=== PATIENT | male | born 2000 | race Caucasian/White ===

== ENCOUNTER 2019-02-07 16:23 | Emergency (ER) | payer BC, SELFPAY ==
[2019-02-07 16:26] VITALS: BP 126/73; PULSE 65; RESP 18; TEMP 36.1; O2SAT 98; BMI 22.1
--- NOTE | 2019-02-07 16:51 | ED.VISSUMM ---
- ER Visit Summary Date of Service: 02/07/19 Chief Complaint: Suicidal ideation History of Present Illness: The patient is a 18 M who presents with suicidal thoughts. Increasing over the past week. Nothing seemed to bring these on, rather everything seems to make his symptoms worse. Per his [employer] counselor, he said that if he could kill himself, he would. He had access to a gun previously but not all at this. He is not doing well in school or take care of himself. He denies any medical complaints. Physical Examination: Afebrile and vital signs unremarkable. Alert and oriented. Flat affect. Depressed mood. Poor eye contact. Heart regular. No respiratory distress. Skin appears normal. Normal strength sensation Test Results: CBC, BMP, tox, alcohol pending. Emergency Department Course and Treatment: Patient had suicide precautions. Will perform medical clearance. I do not anticipate any medical problems. Patient was medically cleared for transfer and admission to a psychiatric facility. Social work evaluated the patient and is arranging transfer and placement. Treatment Plan: As above Disposition: Transfer pending Impression: 1. Suicidal ideation This note was generated with [facility] dictation software. It may contain incorrect words, spelling, and punctuation that were not noted in review of the chart prior to signing ED Disposition - Plan for ED Patient: Referrals: [facility] Doctor,Out of [Primary Care Provider] -
[2019-02-07 17:09] LABS: Absolute Lymphocyte Count 2.13 X10^3/uL (0.83-4.51); Absolute Neutrophil Count 4.1 X10^3/uL (2.0-7.7); Basophil# 0.04 X10^3/uL; Basophil% 0.6 % (0-1); Eosinophil# 0.06 X10^3/uL; Eosinophils% 0.9 % (0-5); Hematocrit 47.4 % (40-54); Hemoglobin 16.2 g/dL (13.0-16.5); Lymphocyte # 2.13 X10^3/ul (4.0); Lymphocyte % 31.8 % (19-41); Mean Corp Hgb Conc 34.2 g/dL (32-36); Mean Corpuscular Hgb 30.2 pg (27.0-32.0); Mean Corpuscular Volume 88.3 fL (80-94); Mean Platelet Vol. 9.1 fl (6.2-12.0); Monocyte# 0.39 X10^3/uL; Monocyte% 5.8 % (0-10); NRBC Flagged by Analyzer 0 % (0-5); Neutrophil # 4.05 X10^3/uL (2.7-7.7); Neutrophil % 60.5 % (47-70); Platelet Count 208 K/mm3 (150-450); RBC Distribution Width CV 11.4 % (11.6-14.6); RBC Distribution Width SD 36.7 fl (35.1-43.9); Red Blood Count 5.37 M/mm3 (4.6-6.2); White Blood Count 6.7 K/mm3 (4.4-11.0)
[2019-02-07 17:23] LABS: Anion Gap 7 (5-15); BUN 13 mg/dL (7-18); BUN/Creat Ratio 14.3 RATIO (10-20); Calcium,Total 9.6 mg/dL (8.5-10.1); Chloride 106 mmol/L (98-107); Creatinine, Serum 0.91 mg/dL (0.70-1.30); EST Glomerular Filtration Rate 114 mL/min (>60); Est Glom Filt Rate - Afr Amer 138 mL/min (>60); Estimated Creatinine Clearance 148.85 ml/min; Glucose 88 mg/dL (74-106); Potassium 3.9 mmol/L (3.5-5.1); Sodium Level 140 mmol/L (136-145)
[2019-02-07 17:43] LABS: Alcohol, Blood (Medical)-Serum < 3.0 mg/dL
--- NOTE | 2019-02-07 17:44 | CM.ED ---
Addendum entered by Tricia Gallego 02/07/19 18:01: Parent phone numbers: Any Warner: [phone]; Jyotsna Warner: [phone] Original Note: Social Work Consult: Suicidal Informant: Dr. Brown Chief Complaint: I don't know. When asked if patient is having suicidal thoughts, I don't know. When asked if patient would kill self, Yes definitely. Marital/Social History: Unknown I don't know. Support/Resources: Sees Guerda a Counselor at the [facility]. Education: Sophomore in [employer] [place], undeclared major. Good grade last semester, declining grades this semester per Guerda. Mental Health Treatment/History: No mental health diagnosis. Patient stating to be anxious currently. Denies history of psychiatric treatment or counseling other then school counselor at [facility]. Abuse Issues: Denies Substance Abuse: Denies Mental Status Exam: A&Ox3. Appearance/General Behavior: Disheveled Mood/Affect: Anxious Communication Pattern: Responds to questions by yes ma'am or no ma'am. Would not expound on any open ended questions. Would mainly answer by I don't know, maybe. Thought Process: Denies any hallucinations or delusions. Appears to be paranoid/concerned with current situation. Did explain process and why patient is in the emergency room today. Risk to Self/Others: Patient stating intention to complete suicide. No plan. Per patient counselor, Guerda patient had a plan to complete suicide with a gun over spring last semester and main thing that stopped patient was not having any bullets. Patient not willing to expound any further on suicidal thoughts or plans. Assessment: Met with patient in room. Introduced self as well as social science teacher role. Patient is agreeable to speak with this social science teacher. Patient standing in room. Patient stating to feel more comfortable standing. This social science teacher standing with patient. Patient with limited responses to questions. Patient unable/unwilling to provide this social science teacher with any life recent triggers or changes. Patient is agreeable to this social science teacher speaking with patient parents, Jyotsna and Jarocho. Patient agreeable to this social science teacher speaking with Guerda. Per Guerda patient came to counseling appointment unkept and with a body odor today, this is a change for patient. Guerda stating that patient stated if I could kill myself I would. Per patient father, Jarocho patient did come out at the end of last semester and now identifies as transgender. Per patient mother, Jyotsna patient sister has a history of an inpatient psychiatric stay with similar presentation. Jarocho and Jyotsna are divorces. Jarocho stating that patient does not open up to family either and will often stating I don't know to patient family. Jarocho stating to have been hesitant about patient going to collage this semester as I was afraid this would happen. Jarocho stating that patient was in the best mood of his life about a month ago. Jarocho inquiring about brining patient home with Jarocho to [facility] and to complete placement from there, Dr. Brown and this social science teacher recommending for patient to have an inpatient psychiatric stay from the ED to be able to be evaluated by a psychiatric. Any agreeable to this and is currently on his way to the hospital. All questions answered. Collaborating with Dr. Brown, recommending inpatient psychiatric placement. 1:[address] PLAN: Will make referrals when medical clearance is obtained. Joshua JASMINE, RYAN
[2019-02-07 18:31] LABS: Amphetamine Urine VISTA NEGATIVE (<1000 ng/mL); Barbiturate Urine VISTA NEGATIVE (< 200 ng/mL); Benzodiazepine Urine VISTA NEGATIVE (< 200 ng/mL); Cocaine Urine VISTA NEGATIVE (< 300 ng/mL); Ecstacy Urine VISTA NEGATIVE (< 500 ng/mL); Methadone Urine VISTA NEGATIVE (< 300 ng/mL); PCP Urine VISTA NEGATIVE (< 25 ng/mL); THC Urine VISTA NEGATIVE (< 50 ng/mL); Vista UDS pH Range 6
--- NOTE | 2019-02-07 18:51 | CM.ED ---
Social Work Medically cleared per Dr. Brown. Referral faxed to [facility]. [facility] is in-network with patient insurance. Pending approval. Joshua Gallego MSW, RYAN
[2019-02-07 19:24] VITALS: RESP 16
[2019-02-07 20:00] VITALS: BP 119/71; PULSE 68; RESP 16; O2SAT 99
[2019-02-07 21:00] VITALS: RESP 16
--- NOTE | 2019-02-07 21:04 | ED.RN ---
PT CURLED UP IN BED IN POSITION, HEAD COVERED WITH BLANKETS. PT REMOVES BLANKETS TO ANSWER QUESTIONS FROM THIS NURSE. OFFERED SEVERAL CHOICES OF FOODS AND DRINKS TO PT, PT ADAMANTLY REFUSES TO EAT OR DRINK. PT CONTINUES WITH FLAT AFFECT, DOES NOT MAKE EYE CONTACT WHILE SPEAKING. PT ANSWERS WITH ONLY YES MAAM OR NO MAAM.
--- NOTE | 2019-02-07 21:41 | CM.ED ---
Addendum entered by Tricia Gallego 02/07/19 21:54: Patient father, Jarocho also updated on discharge plan. Original Note: Social Work Telephone call from [facility], Patient has been accepted. Accepting Doctor: Dr. Jyotsna Fritz. Nurse to Nurse: [phone]. Unit: [address] [place] [address]. Patient is not able to be accepted until 0700am. Team aware. Updated patient and medical team, all agreeable to to plan. [facility] faxed. Joshua Gallego WEAVER APPRENTICE, RYAN
--- NOTE | 2019-02-07 22:38 | ED.RN ---
CALLED [facility] TO NOTIFY OF PT TRANSPORT COMING TO TRANSFER BETWEEN 0830 AND 0900 02/08/19. REQUESTED TO HAVE NURSE TO NURSE REPORT CALLED AFTER 0700 TO DAY SHIFT NURSE THAT WOULD BE RECEIVING PT.
[2019-02-07 22:40] VITALS: RESP 16
--- NOTE | 2019-02-07 22:47 | ED.RN ---
PT NOW RESTING IN BED WITH EYES CLOSED, HEAD UNCOVERED, APPEARS TO BE SLEEPING, NO SIGNS OF DISTRESS. SITTER REMAINS AT BEDSIDE.
[2019-02-08] VITALS (8 sets, daily range): BP systolic 106–137; BP diastolic 59–80; PULSE 52–85; RESP 13–18; TEMP 36.8; O2SAT 97–100
== END 2019-02-08 08:50 ==
PROVIDERS: Emergency Provider Emergency Medicine; Family Provider Pediatrics; PCP Pediatrics
DX: R45.851 Suicidal ideations (principal)
CPT/HCPCS: 36415; 80048; 80307; 80320; 85025; 99284; G0480

== ENCOUNTER 2020-09-10 13:10 | Outpatient (CLI) | payer BC, SELFPAY | END 2020-09-10 13:30 | disposition home or self-care (01) | LOC: IMMUN 09-11 13:15 | PROVIDERS: PCP Pediatrics; Referring Provider Family Medicine; Visit Provider Family Medicine | DX: Z23 Encounter for immunization (principal) | CPT/HCPCS: 0031A; 91303 ==

== ENCOUNTER 2021-01-20 01:12 | Emergency (ER) | payer BC, SELFPAY ==
[2021-01-20 01:21] VITALS: BP 127/81; PULSE 72; RESP 16; TEMP 37.2; O2SAT 99; BMI 25.3
--- NOTE | 2021-01-20 02:18 | EDS_ITS ---
HPI History of Present Illness Chief Complaint: ETOH Intox Narrative Narrative: Patient is a 20-year-old male who goes to college in town. He states he was at a libertarian this evening and was drinking. He reports he takes Effexor and after drinking became very anxious that the medication and the alcohol would interact and cause problems. He began to hyperventilate secondary to this. Reportedly friends could not get him to calm down and he was having questionable respiratory distress so EMS was called to bring him in for evaluation [facility] Medical History Anxiety Depression Home Medications Hormones 01/20/21 [History Last Taken Unknown] venlafaxine [Effexor] 50 mg PO DAILY 01/20/21 [History Last Taken Unknown] Allergy/AdvReac Type Severity Reaction Status Date / Time No Known Allergies Allergy Verified 02/07/19 16:25 Social History Smoking Status: Never smoker ROS ROS ED Constitutional Constitutional ED: Denies chills or fever(s) ENT ENT ED: Denies rhinorrhea or sore throat Cardiovascular Cardiovascular: Denies chest pain Respiratory/Chest Respiratory/Chest: Reports dyspnea; Denies cough Gastrointestinal Gastrointestinal: Denies abdominal pain, nausea or vomiting Musculoskeletal Musculoskeletal: Denies myalgias Integumentary Denies rash Neurologic Neurologic: Denies headache(s) Psychiatric Psychiatric: Reports anxiety EXAM Physical Exam Const Vital Signs: 01/20/21 01:21 Temperature 98.9 F Temperature Source Temporal Pulse Rate 72 Respiratory Rate 16 Blood Pressure 127/81 H Blood Pressure Mean 96 Pulse Ox 99 Oxygen Delivery Method Room Air Positive well nourished and well developed General Appearance ED: well developed HEENT Reports moist mucous membranes HEENT Narrative: Normocephalic atraumatic Eyes EOMs intact bilaterally Eyes Narrative: Pupils are dilated and sluggish to respond consistent with alcohol use Neck supple Neck Narrative: No bony deformity or step-off of the cervical spine no midline pain with palpation Chest Wall inspection of chest normal and palpation of chest normal Resp normal respiratory effort and clear to auscultation bilaterally Cardio regular rate and regular rhythm GI normal to inspection, nondistended, normoactive bowel sounds, non-tender and non-distended Auscultation: normoactive bowel sounds Palpation: soft Extremity normal to inspection Neuro oriented x3 and CN's II-XII intact bilaterally Neuro Narrative: Patient is obtunded but will awaken to voice consistent with report of alcohol use. He has no focal neurologic findings and after being awoken is awake and alert to person place and time Psych mental status grossly normal Skin no rashes or lesions noted MDM MDM MDM Narrative Medical decision making narrative: Patient presented with resolution of his symptoms spontaneously. He had no report or signs of trauma. He is protecting his airway without difficulty. Therefore at this time there is no need for further evaluation in the ER and he is safe to return to campus under supervision Discharge Plan Triage Chief Complaint: ETOH Intox ED Provider: Mj Lo Dx/Rx/DC Orders Clinical Impression: Alcohol intoxication Instructions: ED Alcohol Intoxication Prescriptions: No Action venlafaxine [Effexor] 50 mg Tablet 50 mg PO DAILY RF: 0 Hormones RF: 0 Primary Care Provider: Grant Mcclellan Referrals: Grant Mcclellan MD [Primary Care Provider] - Disposition Disposition: Home, Self Care
[2021-01-20 02:24] VITALS: BP 106/79; PULSE 84; RESP 16; O2SAT 99
--- NOTE | 2021-01-20 02:25 | ED.RN ---
THIS NURSE REVIEWED D/C INSTRUCTIONS WITH PT. PT VERBALIZED UNDERSTANDING OF INSTRUCTIONS. PT DENIES FURTHER NEEDS OR QUESTIONS AT THIS TIME
== END 2021-01-20 02:25 | disposition home or self-care (01) ==
PROVIDERS: Emergency Provider Emergency Medicine; PCP Pediatrics
DX: F10.129 Alcohol abuse with intoxication, unspecified (principal); R06.4 Hyperventilation; R06.00 Dyspnea, unspecified; F32.9 Major depressive disorder, single episode, unspecified; F41.9 Anxiety disorder, unspecified; Z79.899 Other long term (current) drug therapy
CPT/HCPCS: 99284

== ENCOUNTER 2021-03-19 02:13 | Emergency (ER) | payer BC, SELFPAY ==
[2021-03-19 02:14] VITALS: BP 124/76; PULSE 81; RESP 14; TEMP 36.4; O2SAT 97; BMI 26.9
--- NOTE | 2021-03-19 02:19 | ED.RN ---
PT REFUSING TO REMOVE CLOTHING.
--- NOTE | 2021-03-19 03:00 | EX.ED.VIS.PS ---
HPI HPI - Psych History of Present Illness Chief Complaint: Suicidal Informant: patient Narrative Narrative: Patient is a 20-year-old transgender female, goes by Farhad, presenting from [facility] for cutting and aggressive behavior. Patient states that he cuts to help calm himself. Apparently he cut himself deeper than usual and went to the wellness center at [facility]. He states that there he got into a verbal argument with the nurse. Apparently she felt threatened and he stated that he could not guarantee that he would not hurt her. He then ran out of the center. Per report, patient violated his contract for safety by cutting and was sent to the emergency room for further psychiatric evaluation. Patient denies any homicidal or suicidal ideations. He does admit to drinking 4 x 12 ounce beverages that were high in alcohol. When asked about SI he states he wouldn't do that. When asked about HI he states he has thoughts but notes that its not worth it. Patient has a history of anxiety and depression. He is on Effexor. Patient is complain of mild nausea but attributes that to drinking earlier today. States that tetanus is up to date. PFSH PFS Medical History Anxiety Depression Home Medications Hormones 01/20/21 [History Last Taken Unknown] venlafaxine [Effexor] 50 mg PO DAILY 01/20/21 [History Last Taken Unknown] Allergy/AdvReac Type Severity Reaction Status Date / Time No Known Allergies Allergy Verified 02/07/19 16:25 Social History Smoking Status: Never smoker ROS ROS ED Constitutional Constitutional ED: Denies chills or fever(s) Eyes Eyes: Denies change in vision ENT ENT ED: Denies rhinorrhea Cardiovascular Cardiovascular: Denies chest pain Respiratory/Chest Respiratory/Chest: Denies cough or dyspnea Gastrointestinal Gastrointestinal: Reports nausea; Denies abdominal pain or vomiting Genitourinary Genitourinary ED: Denies dysuria Musculoskeletal Musculoskeletal: Denies arthralgias or myalgias Integumentary Reports other Details: self induced cutting to forearms ; Denies rash Neurologic Neurologic: Denies headache(s) or weakness Psychiatric Psychiatric: Reports as per HPI, anxiety and depression EXAM Physical Exam Const Vital Signs: 03/19/21 02:14 03/19/21 04:18 03/19/21 05:29 Temperature 97.6 F L Temperature Source Oral Pulse Rate 81 Respiratory Rate 14 16 16 Blood Pressure 124/76 H Blood Pressure Mean 92 Pulse Ox 97 Oxygen Delivery Method Room Air Positive well nourished and well developed General Appearance ED: well developed HEENT normocephalic and atraumatic Eyes PERRL Neck supple Resp normal respiratory effort and clear to auscultation bilaterally Cardio no murmurs Rate: regular rate Rhythm: regular rhythm GI non-tender and non-distended Auscultation: normoactive bowel sounds Palpation: soft Extremity General Extremety ED: Negative for edema or tenderness General Extremity: Negative for edema Neuro oriented x3 Sensorium / Orientation: alert Motor Exam: muscle tone normal throughout Psych activity/motor behavior normal Appearance: grossly normal Attitude: evasive Activity / Motor Behavior: avoids eye contact Speech: minimal Mood & Affect: flat affect Thought Process: normal thought process Thought Content: normal thought content Attention / Concentration: attention grossly intact Skin Skin Narrative: Numerous linear superficial abrasions of both forearms consistent with self-induced cutting Rashes: no rashes MDM MDM MDM Narrative Medical decision making narrative: Patient evaluated for hostile behavior at [facility], concern for homicidal ideations and self-harm. Patient appears nontoxic in no acute distress. He does have a very flat affect and is withdrawn. He is medically cleared and will be evaluated by counseling center. Cuts of his arms are superficial did not require laceration repair. They do not appear infected. His tetanus is up-to-date. Patient is medically cleared. He is evaluated by crisis who thinks he would be a good candidate for intensive outpatient. He is set up for an appointment at 2 PM on of this week. Patient is agreeable to this. He will be transferred back to [facility]. Lab Data Attestation: I reviewed the patient's lab results. Labs: Laboratory Results - last 24 hr 03/19/21 03/19/21 03/19/21 03:50 03:50 03:50 WBC 10.6 RBC 4.97 Hgb 14.9 Hct 42.6 MCV 85.7 MCH 30.0 MCHC 35.0 RDW Std Deviation 36.3 RDW Coeff of Kiesha 11.8 Plt Count 307 MPV 8.6 Immature Gran % (Auto) 0.900 Neut % (Auto) 60.0 Lymph % (Auto) 28.7 Haralson % (Auto) 7.4 Eos % (Auto) 2.2 Baso % (Auto) 0.8 Absolute Neuts (auto) 6.4 Absolute Lymphs (auto) 3.05 Nucleated RBC % 0 Sodium 137 Potassium 4.2 Chloride 105 Carbon Dioxide 22.0 Anion Gap 10 BUN 17 Creatinine 0.73 Estim Creat Clear Calc 191.31 Est GFR (MDRD) Af Amer 175 Est GFR (MDRD) Non-Af 145 BUN/Creatinine Ratio 23.4 H Glucose 97 Calcium 9.2 Urine Opiates Screen Urine Methadone Screen Ur Barbiturates Screen Ur Phencyclidine Scrn Ur Amphetamines Screen U Methamphetamin-MDMA U Benzodiazepines Scrn Urine Cocaine Screen U Cannabinoids Screen Ur Drug Screen Comment Ethyl Alcohol 53.0 03/19/21 04:16 WBC RBC Hgb Hct MCV MCH MCHC RDW Std Deviation RDW Coeff of Kiesha Plt Count MPV Immature Gran % (Auto) Neut % (Auto) Lymph % (Auto) Haralson % (Auto) Eos % (Auto) Baso % (Auto) Absolute Neuts (auto) Absolute Lymphs (auto) Nucleated RBC % Sodium Potassium Chloride Carbon Dioxide Anion Gap BUN Creatinine Estim Creat Clear Calc Est GFR (MDRD) Af Amer Est GFR (MDRD) Non-Af BUN/Creatinine Ratio Glucose Calcium Urine Opiates Screen NEGATIVE Urine Methadone Screen NEGATIVE Ur Barbiturates Screen NEGATIVE Ur Phencyclidine Scrn NEGATIVE Ur Amphetamines Screen NEGATIVE U Methamphetamin-MDMA NEGATIVE U Benzodiazepines Scrn NEGATIVE Urine Cocaine Screen NEGATIVE U Cannabinoids Screen NEGATIVE Ur Drug Screen Comment Ethyl Alcohol Discharge Plan Triage Chief Complaint: Suicidal ED Provider: Tisha Guzmán Dx/Rx/DC Orders Clinical Impression: Deliberate self-cutting, Depression Instructions: ED Depression Prescriptions: No Action venlafaxine [Effexor] 50 mg Tablet 50 mg PO DAILY RF: 0 Hormones RF: 0 Primary Care Provider: Grant Mcclellan Referrals: Counseling,Center [GROUP OF PHYSICIANS] - Grant Mcclellan MD [Primary Care Provider] - Disposition Disposition: Home, Self Care
[2021-03-19 03:58] LABS: Absolute Lymphocyte Count 3.05 X10^3/uL (0.83-4.51); Absolute Neutrophil Count 6.4 X10^3/uL (2.0-7.7); Basophil# 0.08 X10^3/uL; Basophil% 0.8 % (0-1); Eosinophil# 0.23 X10^3/uL; Eosinophils% 2.2 % (0-5); Hematocrit 42.6 % (40-54); Hemoglobin 14.9 g/dL (13.0-16.5); Lymphocyte # 3.05 X10^3/ul (0.83-4.51); Lymphocyte % 28.7 % (19-41); Mean Corpuscular Volume 85.7 fL (80-94); Mean Platelet Vol. 8.6 fl (6.2-12.0); Monocyte# 0.79 X10^3/uL; Monocyte% 7.4 % (0-10); NRBC Flagged by Analyzer 0 % (0-5); Neutrophil # 6.36 X10^3/uL (2.7-7.7); Platelet Count 307 K/mm3 (150-450); RBC Distribution Width CV 11.8 % (11.6-14.6); RBC Distribution Width SD 36.3 fl (35.1-43.9); Red Blood Count 4.97 M/mm3 (4.6-6.2); White Blood Count 10.6 K/mm3 (4.4-11.0)
[2021-03-19 04:12] LABS: Anion Gap 10 (5-15); BUN 17 mg/dL (7-18); BUN/Creat Ratio 23.4 RATIO (10-20); Calcium,Total 9.2 mg/dL (8.5-10.1); Chloride 105 mmol/L (98-107); Creatinine, Serum 0.73 mg/dL (0.70-1.30); EST Glomerular Filtration Rate 145 mL/min (>60); Est Glom Filt Rate - Afr Amer 175 mL/min (>60); Estimated Creatinine Clearance 191.31 ml/min; Glucose 97 mg/dL (74-106); Potassium 4.2 mmol/L (3.5-5.1); Sodium Level 137 mmol/L (136-145)
[2021-03-19 04:18] VITALS: RESP 16
[2021-03-19 04:39] LABS: Amphetamine Urine VISTA NEGATIVE (<1000 ng/mL); Barbiturate Urine VISTA NEGATIVE (< 200 ng/mL); Benzodiazepine Urine VISTA NEGATIVE (< 200 ng/mL); Cocaine Urine VISTA NEGATIVE (< 300 ng/mL); Ecstacy Urine VISTA NEGATIVE (< 500 ng/mL); Methadone Urine VISTA NEGATIVE (< 300 ng/mL); PCP Urine VISTA NEGATIVE (< 25 ng/mL); THC Urine VISTA NEGATIVE (< 50 ng/mL); Vista UDS pH Range 4
[2021-03-19 05:29] VITALS: RESP 16
--- NOTE | 2021-03-19 06:44 | NURSING ---
dalila, crisis, on phone for patient
== END 2021-03-19 07:24 | disposition home or self-care (01) ==
PROVIDERS: Emergency Provider Emergency Medicine; PCP Pediatrics
DX: F32.A Depression, unspecified (principal); F41.9 Anxiety disorder, unspecified; S50.812A Abrasion of left forearm, initial encounter; S50.811A Abrasion of right forearm, initial encounter; X78.9XXA Intentional self-harm by unspecified sharp object, initial encounter; Y93.9 Activity, unspecified; Y92.9 Unspecified place or not applicable; Y99.9 Unspecified external cause status
CPT/HCPCS: 80048; 80307; 82077; 85025; 93005; 99283